=== PATIENT | male | born 1960 | race Caucasian/White ===

== ENCOUNTER 2017-07-14 10:40 | Inpatient (IN) | payer BC ==
[2017-07-14 11:52] LABS: BASOPHILS % (AUTO) 0.2 % (0.2-1.0); HEMATOCRIT 45.4 % (42.0-54.0); HEMOGLOBIN 15.6 g/dL (13.5-18.0); LYMPHOCYTES # (AUTO) 1.4 X10^3/uL (1.3-2.9); LYMPHOCYTES % (AUTO) 11.1 % (21.0-51.0); MEAN CORPUSCULAR HEMOGLOBIN 31.7 pg (27.0-34.0); MEAN CORPUSCULAR HGB CONC 34.2 g/dL (33.0-35.0); MEAN CORPUSCULAR VOLUME 92.7 fL (80.0-100.0); MEAN PLATELET VOLUME 7.7 fL (7.4-11.0); MONOCYTES # (AUTO) 0.3 x10^3/uL (0.3-0.8); MONOCYTES % (AUTO) 2.7 % (0.0-13.0); NEUTROPHILS # (AUTO) 10.9 x10^3/uL (2.2-4.8); PLATELET COUNT 274 X10^3/uL (150.0-450.0); RED CELL DISTRIBUTION WIDTH 13.5 % (11.6-16.5); WHITE BLOOD COUNT 12.7 X10^3/uL (3.6-10.0)
[2017-07-14] MEDS: MORPHINE SULFATE INJ 2 MG IVP PRN ×2 (11:53→17:40)
[2017-07-14] MEDS: NS 1000 ML 1,000 ML IV SCH (11:53)
[2017-07-14] MEDS: NORCO 7.5/325 MG TAB PO PRN ×2 (12:00→22:58)
[2017-07-14 12:02] LABS: ALANINE AMINOTRANSFERASE 32 Units/L (12-78); ALBUMIN 3.9 g/dL (3.4-5.0); ALKALINE PHOSPHATASE 81 Units/L (46-116); ASPARTATE AMINO TRANSFERASE 18 Units/L (15-37); BLOOD UREA NITROGEN 21 mg/dL (7-18); CALCIUM 8.6 mg/dL (8.5-10.1); CARBON DIOXIDE 27.1 mmol/L (21-32); CHLORIDE 104 mmol/L (98-107); COR NA(FOR HYPERGLY) 139 mmol/L (136-145); CREATININE 1.08 mg/dL (0.70-1.30); GLUCOSE 115 mg/dL (65-99); SODIUM 139 mmol/L (136-145); TOTAL PROTEIN 7.3 g/dL (6.4-8.2); eGFR BLACK RACES > 60 (>60); eGFR NON BLACK RACES > 60 (>60)
--- NOTE | 2017-07-14 12:33 | DR.H&P ---
H&P - History & Physical for Day of: H&P Date: 07/14/17 - Chief Complaint Chief Complaint: Intractable back pain - Allergies Allergies/Adverse Reactions: Allergies Allergy/AdvReac Type Severity Reaction Status Date / Time No Known Drug Allergies Allergy Verified 07/14/17 11:47 - History of Present Illness History of Present Illness: The patient is a 56-year-old white male who presents to the [facility] with incapacitating low back pain. Patient had a MRI which shows multiple level herniated disc from T11-S1. Patient did go to the emergency room on Friday and was given IV steroids as well as IV pain medication. Patient has been taking by mouth tramadol and Valium without improvement. Patient needs assistance with basic ADLs. Patient did remind his grass and did aggravate low back. Patient does have pain running down right buttocks. Patient will be admitted for IV Solu-Medrol, pain control and epidural injection. - Past Medical History Past Medical History: COPD, Hypertension Additional Medical History: Multi-level T11-S1 Disc protrusion - Family History Family Medical History: Cancer, Coronary Artery Disease, Hypertension - Social History Does patient currently use any type of tobacco product: No Have you used tobacco products in the last 12 months: No Type of Tobacco Use: None Does any household member use tobacco: No Alcohol Use: None Drug Use: None - Medications Home Medications: Citalopram Hydrobromide [Celexa] 1 tab PO DAILY 07/14/17 [History Confirmed ] Ibuprofen 1 tab PO QID 07/14/17 [History Confirmed 07/14/17] Tamsulosin HCl [FLOMAX (GENERIC) 0.4 MG *] 1 cap PO HS 07/14/17 [History Confirmed 07/14/17] - Review of Systems Constitutional: Malaise Eyes: No Symptoms Reported ENT: No Symptoms Reported Respiratory: No Symptoms Reported Cardiovascular: No Symptoms Reported Gastrointestinal: No Symptoms Reported Genitourinary: No Symptoms Reported Musculoskeletal: See HPI, Back Pain Skin: No Symptoms Reported Neurological: No Symptoms Reported Oriented: Normal Eyes: Normal Ear: Normal Nose: Normal Throat: Normal Respiratory: Clear Throughout Cardiovascular: Normal : Normal Auscultation: Bowel Sounds: Normal Palpation: Normal Tenderness: Normal Skin: Normal Musculoskeletal: Back:Lumbar, Tender, Motor Deficit, Sensory Deficit Psychiatric: Normal Mood Description: Calm Affect: Quiet Speech Pattern: Clear - Assessment/Plan (1) Intractable back pain Status: Acute Plan: IV Solumedrol, Pain mgmt, LESI (2) Lumbar radiculopathy Status: Acute Plan: IV Solumedrol, Pain mgmt, LESI (3) Hypertension Qualifiers: Hypertension type: essential hypertension Qualified Code(s): I10 - Essential (primary) hypertension Status: Acute Plan: Monitor BP (4) Protrusion of intervertebral disc of lumbosacral region Status: Acute Plan: IV Solumedrol, Pain mgmt, LESI
[2017-07-14] MEDS ORDERED: KENALOG INJ 40 MG ONE (13:46)
[2017-07-14] MEDS ORDERED: MARCAINE 0.25% WITH EPI IJ ONE (13:53)
[2017-07-14] MEDS ORDERED: MARCAINE/EPINEPHRINE ONE (14:21)
--- NOTE | 2017-07-14 14:46 | DR.UPDATE ---
H&P Update History and Physical Update: History and Physical reviewed and patient examined. Changes noted: NO Yes with the following:Agree with H&P will perform lumbar brinda
[2017-07-14] MEDS: DILAUDID INJ IVP PRN (15:43)
[2017-07-14 16:34] VITALS: BMI 32.0
[2017-07-14 17:29] LABS: BILIRUBIN,URINE NEGATIVE (NEGATIVE); BLOOD/HEMOGLOBIN,URINE 2+ (NEGATIVE); GLUCOSE, URINE NEGATIVE (NEGATIVE); KETONES,URINE NEGATIVE (NEGATIVE); LEUKOCYTE ESTERASE ,URINE NEGATIVE (NEGATIVE); NITRITES,URINE NEGATIVE (NEGATIVE); PROTEIN,URINE NEGATIVE (NEGATIVE); UROBILINOGEN,URINE NORMAL (NORMAL)
[2017-07-14 17:43] LABS: APPEARANCE,URINE CLEAR (CLEAR); BACTERIA,URINE TRACE /HPF (NEGATIVE); COLOR,URINE YELLOW (YELLOW); RBC,URINE RARE /HPF (NEGATIVE); SQUAMOUS EPITHELIAL CELL,UR RARE /HPF (NEGATIVE)
[2017-07-14 17:44] LABS: MUCUS,URINE FEW /HPF (NEGATIVE)
[2017-07-14] MEDS: TORADOL 30 MG VIAL IVP SCH (19:14)
[2017-07-14] MEDS: SOLU-Medrol 125 MG VIAL IVP SCH ×2 (19:14→22:58)
[2017-07-14] MEDS: COLACE CAP 100 MG PO SCH (20:29)
[2017-07-14] MEDS: MILK OF MAGNESIA PO SCH (20:29)
[2017-07-14] MEDS: FLOMAX PO SCH (20:30)
[2017-07-14] MEDS ORDERED: SOLU-Medrol 125 MG VIAL IVP SCH (21:00)
[2017-07-14] MEDS: PULMICORT NEB TX 0.5 MG NEB SCH (21:09)
[2017-07-14] MEDS: PROVENTIL NEB TX 0.083% 2.5MG/ 3ML NEB SCH (21:09)
[2017-07-15] MEDS: MORPHINE SULFATE INJ 2 MG IVP PRN ×2 (00:02→09:12)
[2017-07-15] MEDS: TORADOL 30 MG VIAL IVP SCH ×2 (02:03→11:45)
[2017-07-15] MEDS: NS 1000 ML 1,000 ML IV SCH ×4 (05:01→23:37)
[2017-07-15] MEDS: LIORESAL PO SCH ×3 (05:16→21:31)
[2017-07-15] MEDS: SOLU-Medrol 125 MG VIAL IVP SCH (05:16)
[2017-07-15] MEDS: DILAUDID INJ IVP PRN ×2 (05:16→18:59)
[2017-07-15] MEDS: PULMICORT NEB TX 0.5 MG NEB SCH ×2 (08:58→20:01)
[2017-07-15] MEDS: PROVENTIL NEB TX 0.083% 2.5MG/ 3ML NEB SCH ×4 (08:58→20:01)
[2017-07-15] MEDS ORDERED: PATIENT'S HOME MEDICATION (Citalopram Hydrobromide [Celexa] 1 TAB) PO SCH (09:00)
[2017-07-15] MEDS: MILK OF MAGNESIA PO SCH ×2 (09:13→20:54)
[2017-07-15] MEDS: CELEXA PO SCH (09:13)
--- NOTE | 2017-07-15 13:32 | PCM.PROG ---
Progress Note - Progress Note for Day of Date: 07/15/17 - Subjective Subjective: 56 WM ADMITTED ON 07/14/2017 WITH INTRACTABLE LOWER BACK PAIN, LOWER EXTREMITY WEAKNESS. PT CONTINUES TO COMPLAIN THIS AM , NUMBNESS DOWN LEGS AND INABILITY TO WALK WITHOUT ASSISTANCE. PT HAS MRI LAST WEEK IN [place], WILL OBTAIN RESULT FO CHART, WILL CONTINUE PAIN CONTROL, CONSULT PT, PT REQUESTING TRANSFER TO NEUROSURGEON - Past Medical Family Social History Past Med/Fam/Surg Hx: No changes since H&P Allergies: Allergies No Known Drug Allergies Allergy (Verified 07/14/17 11:47) - Review of Systems ROS: No change since H&P - Vital Signs and I&O's Vital Signs: Temperature 97.7 F Pulse Rate [Right Radial] 69 Pulse Rate 70 Respiratory Rate 20 Blood Pressure [Right Arm] 160/79 O2 Sat by Pulse Oximetry 89 Intake and Output: Intake & Output 07/13/17 07/14/17 07/15/17 07/16/17 11:59 11:59 11:59 11:59 Intake Total 580 Output Total 600 Balance -20 - Physical Exam Oriented: Normal Eyes: Normal Ear: Normal Nose: Normal Throat: Normal Respiratory: Diminished (RIGHT LOWER ) Cardiovascular: Normal : Normal Auscultation: Bowel Sounds: Normal Tenderness: Normal Skin: Normal Musculoskeletal: Back:Thoracic, Back:Lumbar, Tender, Motor Deficit, Sensory Deficit Psychiatric: Normal Mood Description: Calm Affect: Quiet Speech Pattern: Clear, Appropriate - Laboratory and Diagnostics Result Diagrams: 07/14/17 11:38 07/14/17 11:38 Labs: 07/14/17 17:13 Urine,Clean Catch Urine Culture - Preliminary Laboratory WBC 12.7 X10^3/uL (3.6-10.0) H 07/14/17 11:38 RBC 4.90 X10^6/uL (4.7-6.0) 07/14/17 11:38 Hgb 15.6 g/dL (13.5-18.0) 07/14/17 11:38 Hct 45.4 % (42.0-54.0) 07/14/17 11:38 MCV 92.7 fL (80.0-100.0) 07/14/17 11:38 MCH 31.7 pg (27.0-34.0) 07/14/17 11:38 MCHC 34.2 g/dL (33.0-35.0) 07/14/17 11:38 RDW 13.5 % (11.6-16.5) 07/14/17 11:38 Plt Count 274 X10^3/uL (150.0-450.0) 07/14/17 11:38 MPV 7.7 fL (7.4-11.0) 07/14/17 11:38 Neut % 86.0 % (42.0-75.0) H 07/14/17 11:38 Lymph % 11.1 % (21.0-51.0) L 07/14/17 11:38 [place] % 2.7 % (0.0-13.0) 07/14/17 11:38 Eos % 0.0 % (0.9-2.9) L 07/14/17 11:38 Baso % 0.2 % (0.2-1.0) 07/14/17 11:38 Neut # 10.9 x10^3/uL (2.2-4.8) H 07/14/17 11:38 Lymph # 1.4 X10^3/uL (1.3-2.9) 07/14/17 11:38 [place] # 0.3 x10^3/uL (0.3-0.8) 07/14/17 11:38 Eos # 0.0 x10^3/uL (0.0-0.2) 07/14/17 11:38 Baso # 0.0 X10^3/uL (0.0-0.1) 07/14/17 11:38 Absolute Nucleated RBC 0.0 /100WBC 07/14/17 11:38 Sodium 139 mmol/L (136-145) 07/14/17 11:38 Corrected Sodium 139 mmol/L (136-145) 07/14/17 11:38 Potassium 4.0 mmol/L (3.5-5.1) 07/14/17 11:38 Chloride 104 mmol/L (98-107) 07/14/17 11:38 Carbon Dioxide 27.1 mmol/L (21-32) 07/14/17 11:38 BUN 21 mg/dL (7-18) H 07/14/17 11:38 Creatinine 1.08 mg/dL (0.70-1.30) 07/14/17 11:38 Est GFR (MDRD) Af Amer > 60 (>60) 07/14/17 11:38 Est GFR (MDRD) Non-Af > 60 (>60) 07/14/17 11:38 Glucose 115 mg/dL (65-99) H 07/14/17 11:38 Calcium 8.6 mg/dL (8.5-10.1) 07/14/17 11:38 Corrected Calcium TNP 07/14/17 11:38 Total Bilirubin 0.30 mg/dL (0.2-1.0) 07/14/17 11:38 AST 18 Units/L (15-37) 07/14/17 11:38 ALT 32 Units/L (12-78) 07/14/17 11:38 Alkaline Phosphatase 81 Units/L (46-116) 07/14/17 11:38 Total Protein 7.3 g/dL (6.4-8.2) 07/14/17 11:38 Albumin 3.9 g/dL (3.4-5.0) 07/14/17 11:38 Globulin 3.4 g/dL (2.5-4.5) 07/14/17 11:38 Albumin/Globulin Ratio 1.1 Ratio (1.1-2.1) 07/14/17 11:38 Specimen Type Clean catch urine 07/14/17 17:13 Urine Color Yellow (YELLOW) 07/14/17 17:13 Urine Appearance Clear (CLEAR) 07/14/17 17:13 Urine pH 5.0 (5.0 - 8.0) 07/14/17 17:13 Ur Specific [place] 1.020 (1.000-1.030) 07/14/17 17:13 Urine Protein Negative (NEGATIVE) 07/14/17 17:13 Urine Glucose (UA) Negative (NEGATIVE) 07/14/17 17:13 Urine Ketones Negative (NEGATIVE) 07/14/17 17:13 Urine Occult Blood 2+ (NEGATIVE) 07/14/17 17:13 Urine Nitrite Negative (NEGATIVE) 07/14/17 17:13 Urine Bilirubin Negative (NEGATIVE) 07/14/17 17:13 Urine Urobilinogen Normal (NORMAL) 07/14/17 17:13 Ur Leukocyte Esterase Negative (NEGATIVE) 07/14/17 17:13 Urine RBC Rare /HPF (NEGATIVE) 07/14/17 17:13 Urine WBC 0 /HPF (NEGATIVE) 07/14/17 17:13 Ur Squamous Epith Cells Rare /HPF (NEGATIVE) 07/14/17 17:13 Urine Bacteria Trace /HPF (NEGATIVE) 07/14/17 17:13 Urine Mucus Few /HPF (NEGATIVE) 07/14/17 17:13 Ur Culture Indicated? Yes/culture set up 07/14/17 17:13 - Plan (1) Intractable back pain Status: Acute Plan: IV Solumedrol, Pain mgmt, LESI (2) Lumbar radiculopathy Status: Acute Plan: IV Solumedrol, Pain mgmt, LESI (3) Protrusion of intervertebral disc of lumbosacral region Status: Acute Plan: IV Solumedrol, Pain mgmt, LESI (4) Hypertension Status: Acute Qualifiers: Hypertension type: essential hypertension Qualified Code(s): I10 - Essential (primary) hypertension Plan: Monitor BP
[2017-07-15] MEDS: ASPIRIN EC 81 MG PO SCH (14:56)
[2017-07-15] MEDS: MOBIC TAB 15 MG PO SCH (18:59)
[2017-07-15] MEDS: FLOMAX PO SCH (20:54)
[2017-07-15] MEDS: COLACE CAP 100 MG PO SCH (20:54)
[2017-07-15] MEDS: NORCO 7.5/325 MG TAB PO PRN (21:01)
[2017-07-16] MEDS: DILAUDID INJ IVP PRN ×2 (02:37→07:40)
[2017-07-16] MEDS: NORCO 7.5/325 MG TAB PO PRN ×2 (03:22→07:43)
[2017-07-16] MEDS: LIORESAL PO SCH (06:05)
[2017-07-16] MEDS ORDERED: VALIUM INJ IVP ONE (08:17)
[2017-07-16] MEDS ORDERED: DILAUDID INJ IVP PRN (09:06)
[2017-07-16] MEDS ORDERED: NORVASC TAB 5 MG PO ONE (09:13)
[2017-07-16] MEDS: CELEXA PO SCH (10:00)
[2017-07-16] MEDS: ASPIRIN EC 81 MG PO SCH (10:00)
[2017-07-16] MEDS: MOBIC TAB 15 MG PO SCH (10:04)
[2017-07-16 10:26] LABS: BASOPHILS # (AUTO) 0.1 X10^3/uL (0.0-0.1); BASOPHILS % (AUTO) 0.6 % (0.2-1.0); EOSINOPHILS % (AUTO) 0.1 % (0.9-2.9); HEMATOCRIT 42.4 % (42.0-54.0); HEMOGLOBIN 14.6 g/dL (13.5-18.0); LYMPHOCYTES # (AUTO) 2.3 X10^3/uL (1.3-2.9); LYMPHOCYTES % (AUTO) 14.2 % (21.0-51.0); MEAN CORPUSCULAR HEMOGLOBIN 31.6 pg (27.0-34.0); MEAN CORPUSCULAR HGB CONC 34.4 g/dL (33.0-35.0); MEAN CORPUSCULAR VOLUME 91.8 fL (80.0-100.0); MEAN PLATELET VOLUME 7.7 fL (7.4-11.0); MONOCYTES # (AUTO) 1.2 x10^3/uL (0.3-0.8); MONOCYTES % (AUTO) 7.7 % (0.0-13.0); NEUTROPHILS # (AUTO) 12.3 x10^3/uL (2.2-4.8); NEUTROPHILS % (AUTO) 77.4 % (42.0-75.0); PLATELET COUNT 246 X10^3/uL (150.0-450.0); RED BLOOD COUNT 4.61 X10^6/uL (4.7-6.0); RED CELL DISTRIBUTION WIDTH 13.3 % (11.6-16.5); WHITE BLOOD COUNT 15.9 X10^3/uL (3.6-10.0)
[2017-07-16] MEDS: PULMICORT NEB TX 0.5 MG NEB SCH (10:36)
[2017-07-16] MEDS: PROVENTIL NEB TX 0.083% 2.5MG/ 3ML NEB SCH (10:36)
[2017-07-16 10:38] LABS: ALANINE AMINOTRANSFERASE 32 Units/L (12-78); ALBUMIN 3.4 g/dL (3.4-5.0); ALKALINE PHOSPHATASE 71 Units/L (46-116); ASPARTATE AMINO TRANSFERASE 19 Units/L (15-37); BLOOD UREA NITROGEN 22 mg/dL (7-18); CALCIUM 8.3 mg/dL (8.5-10.1); CARBON DIOXIDE 27.6 mmol/L (21-32); CHLORIDE 106 mmol/L (98-107); COR NA(FOR HYPERGLY) 140 mmol/L (136-145); CREATININE 1.02 mg/dL (0.70-1.30); GLUCOSE 118 mg/dL (65-99); SODIUM 140 mmol/L (136-145); TOTAL PROTEIN 6.3 g/dL (6.4-8.2); eGFR BLACK RACES > 60 (>60); eGFR NON BLACK RACES > 60 (>60)
[2017-07-16] MEDS: MILK OF MAGNESIA PO SCH (10:53)
[2017-07-16 12:42] VITALS: BP 156/87
== END 2017-07-16 12:35 | disposition short-term general hospital (02) | DRG 552 ==
LOC: UNDOADMOB 10:40 → MED/SURG 10:40 → OBSVTOIN 07-15 09:00
PROVIDERS: ADMIT Internal Medicine; ATTEND Internal Medicine
PROC: 3E0R33Z Introduction of Anti-inflammatory into Spinal Canal, Percutaneous Approach (ICD-10-PCS; principal; 2017-07-15)
PROC: 3E0R3BZ Introduction of Anesthetic Agent into Spinal Canal, Percutaneous Approach (ICD-10-PCS; 2017-07-15)
DX: M54.5 Low back pain (principal); M51.26 Other intervertebral disc displacement, lumbar region; M54.16 Radiculopathy, lumbar region; I10 Essential (primary) hypertension; J44.9 Chronic obstructive pulmonary disease, unspecified
CPT/HCPCS: 36415; 80053; 81001; 85025; 87086; A4222; S0020; G0378; J1885; J2270; J2930; J3301; J3360; J7613; J7626